=== PATIENT | male | born 1955 | race Caucasian/White ===

== ENCOUNTER → 2018-01-25 | Day surgery (SDC) | payer MEDICARE ==
[2018-01-24 09:09] LABS: BASOPHILS # (AUTO) 0.1 (0.0-0.1); BASOPHILS % 0.5 % (0.0-1.0); EOSINOPHILS # (AUTO) 0.3 (0.0-0.4); HEMATOCRIT 42.1 % (38.2-49.6); HEMOGLOBIN 14.8 g/dL (14.0-18.0); LYMPHOCYTES # (AUTO) 3.1 (1.0-3.2); LYMPHOCYTES % 33.6 % (18.0-39.1); MEAN CORPUSCULAR HEMOGLOBIN 32.3 pg (28-32); MEAN CORPUSCULAR HGB CONC 35.2 g/dL (31-35); MEAN CORPUSCULAR VOLUME 91.9 fL (81-99); MONOCYTES # (AUTO) 0.7 (0.2-0.8); MONOCYTES % 7.4 % (4.4-11.3); NEUTROPHILS # (AUTO) 5.1 (2.1-6.9); NEUTROPHILS % 54.9 % (38.7-80.0); PLATELET COUNT 157 x10e3/uL (140-360); RED BLOOD COUNT 4.58 x10e6/uL (4.3-5.7); RED CELL DISTRIBUTION WIDTH 12.5 % (11.7-14.4)
[~2018-01-25] MED LIST: CRESTOR20 MG PO; EPHEDRINE SULFATE INJ 50 MG/10 ML SYR ONE; FENTANYL CITRATE/PF 100MCG/2 ML INJ ONE; GABAPENTIN600 MG PO; GLIMEPIRIDE4 MG PO; GLUCOPHAGE XL500 MG; METFORMIN HCL1000 MG PO; METOPROLOL SUCC25 MG PO; MIDAZOLAM HCL 2 MG/2 ML VIAL ONE; MORPHINE SULFAT30 M2 PO; PROPOFOL IV EMULSION 10 MG/ML 20 ML VIAL ONE; VICTOZA 3-0.6 MG/0.1 INJ; Z.0.VOLTAREN75 MG; Z.0.ZESTRIL10 MG; ZESTRIL20 MG PO
== END | disposition home or self-care (01) ==
LOC: OR 05:38
PROVIDERS: ATTEND Internal Medicine Gastroenterology
DX: Z12.11 Encounter for screening for malignant neoplasm of colon (principal); D12.2 Benign neoplasm of ascending colon; D12.3 Benign neoplasm of transverse colon; D12.4 Benign neoplasm of descending colon; D12.8 Benign neoplasm of rectum; K64.8 Other hemorrhoids; E11.9 Type 2 diabetes mellitus without complications; I10 Essential (primary) hypertension; J44.9 Chronic obstructive pulmonary disease, unspecified; E66.3 Overweight; E78.5 Hyperlipidemia, unspecified; I25.2 Old myocardial infarction; R00.1 Bradycardia, unspecified; F17.200 Nicotine dependence, unspecified, uncomplicated; Z01.810 Encounter for preprocedural cardiovascular examination; Z01.812 Encounter for preprocedural laboratory examination; Z68.26 Body mass index [BMI] 26.0-26.9, adult; Z79.84 Long term (current) use of oral hypoglycemic drugs; Z83.79 Family history of other diseases of the digestive system
CPT/HCPCS: 36415 ×2; 45385; 82948; 85025; 88305; 93005; J2250; 45378

== ENCOUNTER 2019-03-02 11:55 | Outpatient (RCR) | payer MEDICARE ==
[~2019-03-02 11:55] MED LIST changes: -EPHEDRINE SULFATE INJ 50 MG/10 ML SYR ONE; -FENTANYL CITRATE/PF 100MCG/2 ML INJ ONE; +LIDOCAINE VISC 2% SOLN 15 ML UDC ONE; -MIDAZOLAM HCL 2 MG/2 ML VIAL ONE; -PROPOFOL IV EMULSION 10 MG/ML 20 ML VIAL ONE
== END 2019-03-04 ==
LOC: WCC 11:55
PROVIDERS: ATTEND Internal Medicine Infectious Disease
DX: E11.621 Type 2 diabetes mellitus with foot ulcer (principal); E11.69 Type 2 diabetes mellitus with other specified complication; E13.621 Other specified diabetes mellitus with foot ulcer; T54.91XA Toxic effect of unspecified corrosive substance, accidental (unintentional), initial encounter; L97.421 Non-pressure chronic ulcer of left heel and midfoot limited to breakdown of skin; J44.9 Chronic obstructive pulmonary disease, unspecified

== ENCOUNTER 2025-05-18 14:53 | Inpatient (IN) | payer MEDICARE ==
[~2025-05-18] VITALS: Ht 195.6 cm; Wt 90.7 kg
[~2025-05-18 14:53] MED LIST changes: -LIDOCAINE VISC 2% SOLN 15 ML UDC ONE
[2025-05-18 16:14] LABS: BASOPHILS % 0.2 % (0.0-1.0); EOSINOPHILS % 0.7 % (0.0-6.0); LYMPHOCYTES % 16.4 % (18.0-39.1); MONOCYTES % 9.4 % (4.4-11.3); NEUTROPHILS % 72.8 % (38.7-80.0); RED CELL DISTRIBUTION WIDTH 11.9 % (11.7-14.4)
[2025-05-18 16:25] LABS: INR 0.97
[2025-05-18 16:34] LABS: EST GLOMERULAR FILTRATION RATE 101.0 ML/MIN (>=60)
[2025-05-18] MEDS: SODIUM CHLORIDE 0.9% 1000ML 1,000 ML IV STA (16:52)
[2025-05-18] MEDS: Vancomycin IV 1 GM in SODIUM CHLORIDE 0.9% 250ML 250 ML IV ONE (16:54)
[2025-05-18 17:24] VITALS: PULSE 62; RESP 18; TEMP 98.1
[2025-05-18] MEDS ORDERED: ONDANSETRON HCL INJ 2MG/ML 2ML 2 MG/ML VIAL IV PRN ×2 (17:30→22:45)
[2025-05-18 18:25] VITALS: BP 147/77; PULSE 88; RESP 18; TEMP 97.9; O2SAT 98
[2025-05-18] MEDS ORDERED: JARDIANCE25 MG (18:42)
[2025-05-18] MEDS ORDERED: ALBUTEROL1.25 MG/3 NEB (18:42)
[2025-05-18] MEDS ORDERED: METHADONE HCL5 MG PO (18:42)
[2025-05-18] MEDS ORDERED: TRELEGY ELLIPT1 EACH (18:42)
[2025-05-18 20:00] VITALS: BP 109/56; PULSE 71; RESP 18; TEMP 99.1; O2SAT 98
[2025-05-18 21:00] VITALS: BP 109/56; PULSE 71; RESP 18; TEMP 99.1; O2SAT 98
[2025-05-18] MEDS: SODIUM CHLORIDE 0.9% 1000ML 1,000 ML IV SCH (21:09)
[2025-05-18] MEDS ORDERED: DOCUSATE SODIUM 100 MG CAP PO PRN (22:45)
[2025-05-18] MEDS ORDERED: POTASSIUM CHLORIDE 20 MEQ TAB CR PO PRN (22:45)
[2025-05-18] MEDS ORDERED: DIPHENHYDRAMINE HCL 25 MG CAP PO PRN (22:45)
[2025-05-18] MEDS ORDERED: SIMETHICONE 80 MG CHEW PO PRN (22:45)
[2025-05-18] MEDS ORDERED: ACETAMINOPHEN 325 MG TAB PO PRN (22:45)
[2025-05-18] MEDS ORDERED: BENZONATATE 100 MG CAP PO PRN (22:45)
[2025-05-18] MEDS ORDERED: HYDRALAZINE HCL 20 MG/ML VIAL IV PRN (22:45)
[2025-05-18] MEDS ORDERED: DEXTROSE 50% SYRINGE 50 ML IV PRN ×2 (22:45)
[2025-05-18] MEDS ORDERED: ALBUTEROL/IPRATROPIUM 3 ML NEB NEB PRN (22:45)
[2025-05-19] VITALS (11 sets, daily range): BP systolic 109–168; BP diastolic 56–86; PULSE 51–72; RESP 18–20; TEMP 98–99.1; O2SAT 97–100
[2025-05-19] MEDS: Vancomycin IV 1 GM in SODIUM CHLORIDE 0.9% 250ML 250 ML IV SCH (05:38)
[2025-05-19 05:49] LABS: BASOPHILS % 0.2 % (0.0-1.0); EOSINOPHILS % 1.7 % (0.0-6.0); LYMPHOCYTES % 22.4 % (18.0-39.1); MONOCYTES % 9.7 % (4.4-11.3); NEUTROPHILS % 65.3 % (38.7-80.0); RED CELL DISTRIBUTION WIDTH 11.8 % (11.7-14.4)
[2025-05-19 06:29] LABS: CHOL/HDL RATIO 4.9 (3.9-4.7); LDL CHOLESTEROL 75.0 MG/DL (60-130); PHOSPHORUS 2.9 MG/DL (2.3-4.7)
[2025-05-19 06:31] LABS: EST GLOMERULAR FILTRATION RATE 103.0 ML/MIN (>=60)
[2025-05-19] MEDS: INSULIN LISPRO 100 UNIT/1 ML 3ML VIAL SQ SCH (07:30)
[2025-05-19] MEDS: CRESTOR 10MG PO SCH (09:35)
[2025-05-19] MEDS: METHADONE HCL 5 MG TAB PO SCH (09:36)
[2025-05-19] MEDS: ENOXAPARIN SOD INJ 40 MG/0.4 ML SYR SC SCH (16:53)
[2025-05-20] VITALS (11 sets, daily range): BP systolic 129–166; BP diastolic 70–87; PULSE 50–72; RESP 18–21; TEMP 98–98.6; O2SAT 97–100
[2025-05-20 04:53] LABS: BASOPHILS % 0.3 % (0.0-1.0); EOSINOPHILS % 2.5 % (0.0-6.0); LYMPHOCYTES % 24.2 % (18.0-39.1); MONOCYTES % 7.6 % (4.4-11.3); NEUTROPHILS % 64.8 % (38.7-80.0); RED CELL DISTRIBUTION WIDTH 11.7 % (11.7-14.4)
[2025-05-20 05:15] LABS: CHOL/HDL RATIO 5.0 (3.9-4.7); EST GLOMERULAR FILTRATION RATE 103.0 ML/MIN (>=60); LDL CHOLESTEROL 67.0 MG/DL (60-130)
[2025-05-20] MEDS: ASPIRIN 81 MG ENTERIC COATED PO SCH (09:23)
[2025-05-20] MEDS: SODIUM CHLORIDE 0.9% 1000ML 1,000 ML IV SCH (13:15)
[2025-05-20] MEDS ORDERED: ONDANSETRON HCL INJ 2MG/ML 2ML 2 MG/ML VIAL IV PRN (13:15)
[2025-05-20] MEDS ORDERED: HYDROCODONE/APAP 5MG-325MG TAB PO PRN (13:15)
[2025-05-20] MEDS: HEPARIN SOD/SOD CHLORIDE 2,000 ML ONE (14:20)
[2025-05-20] MEDS: LIDOCAINE HCL 2% LOCAL 20 ML VIAL ONE (14:20)
[2025-05-20] MEDS: IOPAMIDOL 370 MG/ML 100 ML INFUS..BTL INJ ONE (14:21)
[2025-05-20] MEDS: FENTANYL CITRATE/PF 100MCG/2 ML INJ ONE ×2 (14:21→14:22)
[2025-05-20] MEDS: SODIUM CHLORIDE 0.9% 1000ML 2,000 ML ONE (14:21)
[2025-05-20] MEDS: SODIUM CHLORIDE 0.9% 1000ML 1,000 ML ONE (14:21)
[2025-05-20] MEDS: MIDAZOLAM HCL 2 MG/2 ML VIAL ONE ×3 (14:21→14:22)
[2025-05-20] MEDS: CLOPIDOGREL BISULFATE 75 MG TAB ONE (14:23)
[2025-05-21] VITALS (8 sets, daily range): BP systolic 134–155; BP diastolic 73–82; PULSE 50–63; RESP 17–21; TEMP 98–98.8; O2SAT 96–100
[2025-05-21 05:27] LABS: BASOPHILS % 0.5 % (0.0-1.0); EOSINOPHILS % 3.1 % (0.0-6.0); LYMPHOCYTES % 18.6 % (18.0-39.1); MONOCYTES % 8.5 % (4.4-11.3); NEUTROPHILS % 68.5 % (38.7-80.0); RED CELL DISTRIBUTION WIDTH 11.8 % (11.7-14.4)
[2025-05-21 06:03] LABS: EST GLOMERULAR FILTRATION RATE 105.0 ML/MIN (>=60)
[2025-05-21] MEDS: CLOPIDOGREL BISULFATE 75 MG TAB PO SCH (09:16)
[2025-05-21] MEDS: ASPIRIN 325 MG TAB PO SCH (09:17)
[2025-05-21] MEDS: VILANTER INH SCH (09:17)
[2025-05-21] MEDS: UMECLIDIN INH SCH (09:17)
[2025-05-21] MEDS: FLUTICASONE INH SCH (09:17)
[2025-05-21] MEDS: MELATONIN 5 MG TABLET PO PRN (21:49)
[2025-05-21] MEDS: SODIUM CHLORIDE 0.9% 1000ML 1,000 ML IV SCH (21:57)
[2025-05-22] VITALS (8 sets, daily range): BP systolic 140–167; BP diastolic 78–88; PULSE 50–81; RESP 17–20; TEMP 97–98.3; O2SAT 96–100
[2025-05-22] MEDS ORDERED: MIDAZOLAM HCL 2 MG/2 ML VIAL ONE (08:43)
[2025-05-22] MEDS ORDERED: FENTANYL CITRATE/PF 100MCG/2 ML INJ ONE (08:43)
[2025-05-22] MEDS ORDERED: LIDOCAINE HCL 2% LOCAL INJ 5 ML SDV VIAL INJ ONE (08:44)
[2025-05-22] MEDS ORDERED: PROPOFOL IV EMULSION 10 MG/ML 20 ML VIAL ONE (08:44)
[2025-05-22] MEDS ORDERED: FAMOTIDINE 20 MG/2 ML VIAL IV ONE (08:44)
[2025-05-22] MEDS ORDERED: ALBUTEROL 90 MCG/ACT INHALER INH ONE (08:59)
[2025-05-22] MEDS ORDERED: GLYCOPYRROLATE INJ 0.2 MG/ML VIAL ONE (09:01)
[2025-05-22] MEDS ORDERED: EPHEDRINE SULFATE INJ 50 MG/ML VIAL ONE (09:02)
[2025-05-22] MEDS ORDERED: DEXAMETHASONE SOD PHOS INJ 4 MG/ML SDV ONE (09:14)
[2025-05-22] MEDS ORDERED: ONDANSETRON HCL INJ 2MG/ML 2ML 2 MG/ML VIAL ONE (09:14)
[2025-05-23] VITALS (10 sets, daily range): BP systolic 132–159; BP diastolic 71–83; PULSE 46–74; RESP 18–20; TEMP 97.5–98.7; O2SAT 97–100
[2025-05-23] MEDS ORDERED: ASPIRIN CHEW81 MG PO (11:05)
[2025-05-23] MEDS ORDERED: COZAAR100 MG PO (11:05)
[2025-05-23] MEDS ORDERED: PLAVIX75 MG PO (11:05)
[2025-05-23] MEDS: LOSARTAN POTASSIUM 100 MG TAB PO SCH (12:11)
[2025-05-24] VITALS (9 sets, daily range): BP systolic 126–170; BP diastolic 59–84; PULSE 48–69; RESP 17–20; TEMP 97.5–98.5; O2SAT 96–100
[2025-05-24 06:29] LABS: EST GLOMERULAR FILTRATION RATE 97.0 ML/MIN (>=60)
[2025-05-24] MEDS: ASPIRIN 81 MG CHEW TAB PO SCH (08:17)
[2025-05-24] MEDS: LOSARTAN POTASSIUM 100 MG TAB PO SCH (21:41)
[2025-05-25] VITALS: BP 156/77; PULSE 50; RESP 19; TEMP 98.1; O2SAT 99
[2025-05-25 06:48] VITALS: PULSE 65; RESP 21; O2SAT 98
[2025-05-25 08:11] VITALS: BP 139/78; PULSE 52; RESP 18; TEMP 97.8; O2SAT 99
[2025-05-25 11:44] VITALS: BP 153/84; PULSE 53; RESP 19; TEMP 97.9; O2SAT 97
[2025-05-25 15:58] VITALS: BP 141/76; PULSE 55; RESP 18; TEMP 97.8; O2SAT 97
== END 2025-05-25 17:50 | disposition home or self-care (01) | DRG 271 ==
LOC: ER 15:35 → ERHOLD 17:16 → MED/SURG2 18:30
PROVIDERS: ADMIT Internal Medicine; ATTEND Internal Medicine
PROC: 4A023N7 Measurement of Cardiac Sampling and Pressure, Left Heart, Percutaneous Approach (ICD-10-PCS; principal; 2025-05-20)
PROC: 047L3ZZ Dilation of Left Femoral Artery, Percutaneous Approach (ICD-10-PCS; 2025-05-20)
PROC: 047S3ZZ Dilation of Left Posterior Tibial Artery, Percutaneous Approach (ICD-10-PCS; 2025-05-20)
PROC: 047U3ZZ Dilation of Left Peroneal Artery, Percutaneous Approach (ICD-10-PCS; 2025-05-20)
PROC: B2111ZZ Fluoroscopy of Multiple Coronary Arteries using Low Osmolar Contrast (ICD-10-PCS; 2025-05-20)
PROC: B2151ZZ Fluoroscopy of Left Heart using Low Osmolar Contrast (ICD-10-PCS; 2025-05-20)
PROC: B41G1ZZ Fluoroscopy of Left Lower Extremity Arteries using Low Osmolar Contrast (ICD-10-PCS; 2025-05-20)
PROC: B41C1ZZ Fluoroscopy of Pelvic Arteries using Low Osmolar Contrast (ICD-10-PCS; 2025-05-20)
PROC: B4101ZZ Fluoroscopy of Abdominal Aorta using Low Osmolar Contrast (ICD-10-PCS; 2025-05-20)
PROC: 04CL3ZZ Extirpation of Matter from Left Femoral Artery, Percutaneous Approach (ICD-10-PCS; 2025-05-20)
PROC: 0Y6S0Z0 Detachment at Left 2nd Toe, Complete, Open Approach (ICD-10-PCS; 2025-05-22)
PROC: 0Y6U0Z0 Detachment at Left 3rd Toe, Complete, Open Approach (ICD-10-PCS; 2025-05-22)
DX: E11.52 Type 2 diabetes mellitus with diabetic peripheral angiopathy with gangrene (principal); I96 Gangrene, not elsewhere classified; M86.172 Other acute osteomyelitis, left ankle and foot; L03.116 Cellulitis of left lower limb; L97.526 Non-pressure chronic ulcer of other part of left foot with bone involvement without evidence of necrosis; E11.42 Type 2 diabetes mellitus with diabetic polyneuropathy; E11.69 Type 2 diabetes mellitus with other specified complication; E11.621 Type 2 diabetes mellitus with foot ulcer; Z79.84 Long term (current) use of oral hypoglycemic drugs; E78.5 Hyperlipidemia, unspecified; I25.10 Atherosclerotic heart disease of native coronary artery without angina pectoris; I11.9 Hypertensive heart disease without heart failure; J44.9 Chronic obstructive pulmonary disease, unspecified; E11.65 Type 2 diabetes mellitus with hyperglycemia; G89.4 Chronic pain syndrome; B95.62 Methicillin resistant Staphylococcus aureus infection as the cause of diseases classified elsewhere; F11.90 Opioid use, unspecified, uncomplicated; M54.40 Lumbago with sciatica, unspecified side; E78.00 Pure hypercholesterolemia, unspecified; M19.90 Unspecified osteoarthritis, unspecified site; Z72.0 Tobacco use; Z91.018 Allergy to other foods; Z80.8 Family history of malignant neoplasm of other organs or systems
CPT/HCPCS: 36247; 36415; 37225; 37246; 71045; 75625; 75716; 76937; 80048; 80053; 80061; 80202; 82550; 82948; 83036; 83735; 84100; 84443; 84484; 85014; 85018; 85025; 85610; 85730; 87040; 87071; 87075; 87186; 87205; 88304; 88305; 88311; 93005; 93306; 93925; 94799; 99152; 99153; 99252; 99284; C1724; C1725; C1760; C1769; C1887; C1894; J1100; J1308; J1650; J2003; J2250; J2405; J2543; J3373; J7030; J7050; Q9967